=== PATIENT | male | born 1995 | race Caucasian/White ===

== ENCOUNTER 2021-11-03 11:45 | Emergency (ER) | payer MEDICAID ==
[~2021-11-03] VITALS: Ht 180.3 cm; Wt 75.0 kg
[~2021-11-03 11:45] MED LIST: FEXO30TA7 PO; FLUT16SP2 NS; NO HOME MEDS
[2021-11-03 11:58] VITALS: BP 143/88
== END 2021-11-03 15:10 | disposition home or self-care (01) ==
LOC: ER 11:46
DX: S62.035A Nondisplaced fracture of proximal third of navicular [scaphoid] bone of left wrist, initial encounter for closed fracture (principal); X58.XXXA Exposure to other specified factors, initial encounter; Y93.89 Activity, other specified; Y92.89 Other specified places as the place of occurrence of the external cause; Y99.8 Other external cause status
CPT/HCPCS: 29125; 73110; 99283

== ENCOUNTER 2021-11-06 14:45 | Emergency (ER) | payer MEDICAID ==
[~2021-11-06] VITALS: Ht 180.3 cm; Wt 75.0 kg
[2021-11-06 14:52] VITALS: BP 128/77
== END 2021-11-06 15:11 | disposition home or self-care (01) ==
LOC: ER 14:46
DX: Z00.8 Encounter for other general examination (principal); S62.03 Fracture of proximal third of navicular [scaphoid] bone of wrist; W19.XXXD Unspecified fall, subsequent encounter
CPT/HCPCS: 99281